=== PATIENT | male | born 1965 | race American Indian/Alaskan Native ===

== ENCOUNTER 2017-04-04 12:51 | Emergency (ER) | payer BC, MEDICAID ==
[2017-04-04 13:06] VITALS: BMI 23.7
[2017-04-04 13:08] VITALS: TEMP 98.5
[2017-04-04 13:11] VITALS: O2SAT 99
--- NOTE | 2017-04-04 14:20 | ED PDOC ---
Arrival/HPI - General Chief Complaint: GI Problem Time Seen by Provider: 04/04/17 13:57 Historian: Patient, Spouse - History of Present Illness Narrative History of Present Illness (Text): 04/04/17 14:46 pt p/w few days onset of rectal pain and rectal bleeding/spotting; pt noted sometimes bleeding after wiping; no gross/lilia bleeding noted; pt states rectal pain worsened today; pt states he has a hx of ext hemorrhoids but never been to the doctor for treatment; pt states no fever/chills/sweats, no cp/sob/ palpitations, no abd pain, intact appetite, no n/v, no numbness/tingling, no urinary/bowel changes, last BM was this morning; pt has noted intermittent loose BM/last diarrhea was this morning as well; pt states no weight loss, no fall/trauma/sick contact, no travel; pt denied other complaints; pt is here for further eval. Time/Duration: < week Symptom Onset: Gradual Symptom Course: Intermittent Quality: Stabbing, Burning Severity Level: 9 Activities at Onset: Rest Context: Sitting Past Medical History - Provider Review Nursing Documentation Reviewed: Yes - Travel History Have you recently traveled outside [place] w/in the past 3 mons?: No - Past History Past History: Non-Contributing - Infectious Disease Hx of Infectious Diseases: None - Tetanus Immunization Tetanus Immunization: Unknown - Past Medical History Past Medical History: No Previous - Cardiac Hx Cardiac Disorders: No - Pulmonary Hx Respiratory Disorders: Yes Other/Comment: respiratory arrest 2011 s/p gib/syncope - Neurological Hx Neurological Disorder: Yes Hx Syncope: Yes (s/p gib x 2) - HEENT Hx HEENT Disorder: No - Renal Hx Renal Disorder: No - Endocrine/Metabolic Hx Endocrine Disorders: No - Hematological/Oncological Hx Blood Disorders: Yes Hx Blood Transfusions: Yes (s/p gib/duodenal ulcer x 2) Hx Blood Transfusion Reaction: Yes - Integumentary Hx Dermatological Disorder: No - Musculoskeletal/Rheumatological Hx Musculoskeletal Disorders: No - Gastrointestinal Hx Gastrointestinal Disorders: Yes (GI bleed) Other/Comment: abdominal hernia 2017 - Genitourinary/Gynecological Hx Genitourinary Disorders: No - Psychiatric Hx Psychophysiologic Disorder: No Hx Substance Use: No - Surgical History Other/Comment: gastric; duodenal ulcer repair - Anesthesia Hx Anesthesia: Yes Hx Anesthesia Reactions: No Hx Malignant Hyperthermia: No - Suicidal Assessment Feels Threatened In Home Enviroment: No Family/Social History - Physician Review Nursing Documentation Reviewed: Yes Family/Social History: Unknown Family HX Smoking Status: Never Smoked Hx Alcohol Use: No Hx Substance Use: No Hx Substance Use Treatment: No Allergies/Home Meds Allergies/Adverse Reactions: Allergies NSAIDS (Non-Steroidal Anti-Inflamma Adverse Reaction (Severe, Verified 04/04/17 13:08) PAIN bleeding Review of Systems - Review of Systems Constitutional: Normal Eyes: Normal ENT: Normal Respiratory: Normal Cardiovascular: Normal Gastrointestinal: Constipation, Diarrhea, Other (gi bleed, rectal pain). absent : Abdominal Pain Genitourinary Male: Normal Musculoskeletal: Normal Skin: Normal Neurological: Normal Endocrine: Normal Hemo/Lymphatic: Normal Psychiatric: Normal Physical Exam Vital Signs Reviewed: Yes Vital Signs Temp Pulse Resp BP Pulse Ox 04/04/17 14:35 83 16 130/72 99 04/04/17 13:08 98.5 F 61 18 127/75 99 04/04/17 13:07 98.5 F 62 18 127/75 100 Temperature: Afebrile Blood Pressure: Normal Pulse: Regular Respiratory Rate: Normal Appearance: Positive for: Well-Appearing, Other (uncomfortable, laying on the side due to rectal pain, mild distress due to pain, alert/awake, cooperative) Mental Status: Positive for: Alert and Oriented X 3 - Systems Exam Head: Present: Atraumatic, Normocephalic Pupils: Present: PERRL Extroacular Muscles: Present: EOMI Conjunctiva: Present: Normal Ears: Present: Normal Mouth: Present: Moist Mucous Membranes Pharnyx: Present: Normal Neck: Present: Normal Range of Motion Respiratory/Chest: Present: Clear to Auscultation, Good Air Exchange. No: Respiratory Distress, Accessory Muscle Use, Wheezes Cardiovascular: Present: Regular Rate and Rhythm, Normal S1, S2. No: Murmurs Abdomen: Present: Normal Bowel Sounds, Other (well nourished male, no focal tenderness, no watters's sign, no mcburney's point tenderness, no masses/rebound/ guarding/rigidity). No: Tenderness, Distention, McBurney's Point Tender Rectal: Present: Rectal Tenderness, Normal Rectal Tone, Other (noted raw skin around the rectal region, no fissures/sores, no gross bleeding noted; + en face 1-3 olcock region non-thrombosed external hemorrhoid without bleeding, no discharge/foul odor noted) Back: Present: Normal Inspection Upper Extremity: Present: Normal Inspection, Normal ROM, NORMAL PULSES. No: Edema Lower Extremity: Present: Normal Inspection, NORMAL PULSES, Normal ROM. No: Edema Neurological: Present: GCS=15, CN II-XII Intact, Speech Normal Skin: Present: Warm, Normal Color, Other (cap refill < 1 sec, no ulcerations, no petechiae) Psychiatric: Present: Alert, Oriented x 3, Normal Insight, Normal Concentration Medical Decision Making ED Course and Treatment: 04/04/17 14:16 rectal pain and noted stool/wiping with blood noted to tissue paper a/p: GI bleed - likely ext hemorrhoids - observe - supportive care 04/04/17 14:57 pt is made aware of pt's medical results pt is encouraged wound care/sitz bath pt will f/u as directed pt will be discharged home Disposition/Present on Arrival - Present on Arrival Any Indicators Present on Arrival: No History of DVT/PE: No History of Uncontrolled Diabetes: No Urinary Catheter: No History of Decub. Ulcer: No History Surgical Site Infection Following: None - Disposition Have Diagnosis and Disposition been Completed?: Yes Diagnosis: External hemorrhoids without complication, Rectal pain Disposition: HOME/ ROUTINE Disposition Time: 14:17 Patient Plan: Discharge Condition: GOOD Discharge Instructions (ExitCare): Hemorrhoids (ED), Rectal Pain (ED) Print Language: SAMI Additional Instructions: Make sure to see your doctor in 1-2 days DRINK PLENTY OF FLUIDS SITZ bath is encouraged take your medications as prescribed RETURN TO ED IF worse pain, persistent bleeding, cant breath, persistent vomiting, high fever >101-102 for hours, altered behavior, unable to urinate, heavy/persistent bleeding, passing out, chest pain, or other medical emergencies Prescriptions: Hydrocortisone 2.5% (Rectal) [Anusol-HC] 30 applic [place] BID #1 tube Lidocaine 4% [Lidocaine 4% 50 mL Topical (OR)] 50 ml TOP Q6 #1 bottle Sennosides/Docusate Sodium [Senna S Tablet] 1 each PO BID #30 tablet Referrals: Kg Garcia MD [Primary Care Provider] - Follow up with primary Nikhil Canela [Non-Staff] - Follow up with primary Forms: [employer] (Mongolian)
[2017-04-04 14:37] VITALS: BP 130/72; PULSE 83; RESP 16
== END 2017-04-04 14:38 | disposition home or self-care (01) ==
LOC: ED 12:51
DX: K64.4 Residual hemorrhoidal skin tags (principal); K62.89 Other specified diseases of anus and rectum